=== PATIENT | male | born 1950 | race Caucasian/White ===

== ENCOUNTER 2019-10-16 18:20 | Inpatient (IN) ==
[2019-10-16] MEDS ORDERED: Ipratropium/Albuterol Neb 3 ML IH ONE (18:33)
[2019-10-16] MEDS ORDERED: cefTRIAXone 1,000 MG in Water for inj. (sterile) 10 ML IVP ONE (18:34)
[2019-10-16] MEDS ORDERED: Azithromycin 500 MG in 0.9 % Sodium Chloride 250 ML IVPB ONE (18:35)
[2019-10-16 19:15] LABS: Basophils % 0.5 %; Eosinophils % 0.5 %; Hemoglobin 13.2 g/dL (12.9-16.9)
[2019-10-16 19:17] LABS: Hematocrit 37.7 % (37.5-50.1); Immature Granulocytes % 0.5 % (0-4); Lymphocytes # 0.3 K/mcL (0.6-4.6); Lymphocytes % 12.7 %; Mean Corpuscular Hemoglobin 30.6 pg (28.0-33.3); Mean Corpuscular Volume 87.3 fL (83.0-100.0); Monocytes # 0.1 K/mcL (0.0-1.3); Monocytes % 4.4 %; Red Blood Count 4.32 M/mcL (4.19-5.50); Red Cell Distribution Width 13.3 % (11.5-14.5); Segmented Neutrophils % 81.4 %
[2019-10-16 19:35] LABS: BUN/Creatinine Ratio 24 (6-26); Blood Urea Nitrogen 18 mg/dL (8-23); Calcium 8.4 mg/dL (8.6-10.3); Carbon Dioxide 28 mEq/L (23-29); Chloride 94 mEq/L (98-107); Glucose 309 mg/dL (70-105); Osmolality,Calculated 290 (280-300); Potassium 3.3 mEq/L (3.5-5.1); Sodium 133 mEq/L (136-145); Troponin I < 0.03 ng/mL (< 0.04); eGFR For African Americans > 60 (> 60); eGFR For Non-African Americans > 60 (> 60)
[2019-10-16 19:39] LABS: Neutrophils # 1.6 K/mcL (1.6-8.9)
[2019-10-16 21:16] LABS: VBG HCO3 30 mEq/L (21-27); VBG PCO2 53 mmHg (41-51); VBG PH 7.36 pH Units (7.32-7.42); VBG PO2 45 mmHg (25-50)
[2019-10-16] MEDS ORDERED: Naloxone 0.4 MG/ML INJ IVP PRN (23:33)
[2019-10-16] MEDS ORDERED: D5% in Water 1,000 ML IVC PRN (23:38)
[2019-10-16] MEDS ORDERED: Dextrose Gel 15 GM/37.5 ML TUBE PO PRN ×2 (23:38)
[2019-10-16] MEDS ORDERED: *HR* Dextrose 50 % in Water (Syg) 50 ML SYRINGE IVP PRN (23:38)
[2019-10-17] MEDS: 0.9 % Sodium Chloride 1,000 ML IVC SCH ×2 (01:22→08:53)
[2019-10-17] MEDS: Ipratropium/Albuterol Neb 3 ML IH SCH ×4 (04:00→22:06)
[2019-10-17 04:48] LABS: Hemoglobin 12.6 g/dL (12.9-16.9); Mean Corpuscular Volume 91.1 fL (83.0-100.0); Red Cell Distribution Width 13.6 % (11.5-14.5)
[2019-10-17 04:49] LABS: Mean Corpuscular HGB Conc 33.2 g/dL (31.6-35.5); Mean Corpuscular Hemoglobin 30.2 pg (28.0-33.3); Mean Platelet Volume 11.5 fL (9.4-12.4); Platelet Count 122 K/mcL (140-400); Red Blood Count 4.17 M/mcL (4.19-5.50); White Blood Count 2.1 K/mcL (4.3-11.1)
[2019-10-17 04:50] LABS: VBG HCO3 30 mEq/L (21-27); VBG PCO2 52 mmHg (41-51); VBG PH 7.38 pH Units (7.32-7.42); VBG PO2 68 mmHg (25-50)
[2019-10-17 05:11] LABS: BUN/Creatinine Ratio 25 (6-26); Blood Urea Nitrogen 16 mg/dL (8-23); Calcium 8.5 mg/dL (8.6-10.3); Carbon Dioxide 30 mEq/L (23-29); Chloride 97 mEq/L (98-107); Glucose 221 mg/dL (70-105); Magnesium 1.9 mg/dL (1.6-2.6); Osmolality,Calculated 290 (280-300); Phosphorous 2.6 mg/dL (2.7-4.5); Potassium 3.9 mEq/L (3.5-5.1); Sodium 136 mEq/L (136-145); eGFR For African Americans > 60 (> 60); eGFR For Non-African Americans > 60 (> 60)
[2019-10-17] MEDS: *HR* Heparin 5,000 UNIT/ML VIAL SQ SCH ×2 (05:53→18:32)
[2019-10-17] MEDS ORDERED: Albuterol 2.5 MG/3 ML NEBULIZER IH PRN (08:30)
[2019-10-17] MEDS ORDERED: Losartan/HCTZ 50-12.5 TABLET PO SCH (09:00)
[2019-10-17] MEDS ORDERED: cefTRIAXone 2,000 MG in 0.9 % Sodium Chloride Mini Bag 100 ML IVPB SCH (09:00)
[2019-10-17] MEDS ORDERED: Azithromycin 500 MG in 0.9 % Sodium Chloride 250 ML IVPB SCH ×2 (09:00→17:00)
[2019-10-17] MEDS ORDERED: MethylPREDNISolone 40 MG/ML VIAL IVP SCH (09:00)
[2019-10-17] MEDS: Clotrimazole 1% CRM 15 GM TUBE TP SCH ×2 (09:06→20:41)
[2019-10-17] MEDS: Insulin LISPRO 300 UNITS/3 ML VIAL SQ SCH ×3 (09:12→18:26)
[2019-10-17] MEDS ORDERED: Isovue-370 500 ML BOTTLE IVP ONE (10:39)
[2019-10-17] MEDS: Budesonide/Formoterol 80/4.5 1 PUFF INH IH SCH ×2 (11:08→22:06)
[2019-10-17 11:46] LABS: Adenovirus Not Detected (Not Detect); Bordetella Pertussis Not Detected (Not Detect); Chlamydophila pneumoniae Not Detected (Not Detect); Coronavirus 229E Not Detected (Not Detect); Coronavirus HKU1 Not Detected (Not Detect); Coronavirus NL63 Not Detected (Not Detect); Coronavirus OC43 Not Detected (Not Detect); Human Metapneumovirus Not Detected (Not Detect); Human Rhinovirus/Enterovirus Not Detected (Not Detect); Influenza A Subtype 2009 H1 Not Detected (Not Detect); Influenza B Not Detected (Not Detect); Mycoplasma pneumoniae Not Detected (Not Detect); Parainfluenza Virus 1 Not Detected (Not Detect); Parainfluenza Virus 2 Not Detected (Not Detect); Parainfluenza Virus 3 Not Detected (Not Detect); Parainfluenza Virus 4 Not Detected (Not Detect); Respiratory Syncytial Virus Not Detected (Not Detect)
[2019-10-17] MEDS: Piperacillin/Tazobactam 3.375 GM in 0.9 % Sodium Chloride Mini Bag 100 ML IVPB SCH ×2 (16:07→23:46)
[2019-10-17] MEDS: MethylPREDNISolone 40 MG/ML VIAL IVP SCH ×2 (16:08→23:46)
[2019-10-17] MEDS: Acetaminophen 325 MG TABLET PO PRN (16:10)
[2019-10-17] MEDS ORDERED: Doxycycline 200 MG in 0.9 % Sodium Chloride 250 ML IVPB SCH (18:00)
[2019-10-17] MEDS ORDERED: Perflutren Lipid Microsphere 1.3 ML in 0.9 % Sodium Chloride 8.7 ML IVP ONE (18:19)
[2019-10-17] MEDS: Doxycycline 100 MG in 0.9 % Sodium Chloride Mini Bag 100 ML IVPB SCH ×2 (18:31→19:55)
[2019-10-17] MEDS ORDERED: Insulin LISPRO 300 UNITS/3 ML VIAL SQ SCH (21:00)
[2019-10-17] MEDS ORDERED: Insulin DETEMIR 100 UNIT/ML X5UNITS SQ SCH (21:00)
[2019-10-17] MEDS ORDERED: rOPINIRole 0.25 MG TABLET PO ONE (23:30)
[2019-10-18 02:14] LABS: Hematocrit 34.8 % (37.5-50.1); Hemoglobin 11.8 g/dL (12.9-16.9); Immature Granulocytes % 1.9 % (0-4); Lymphocytes # 0.2 K/mcL (0.6-4.6); Lymphocytes % 10.3 %; Mean Corpuscular HGB Conc 33.9 g/dL (31.6-35.5); Mean Corpuscular Hemoglobin 29.9 pg (28.0-33.3); Mean Corpuscular Volume 88.1 fL (83.0-100.0); Mean Platelet Volume 11.1 fL (9.4-12.4); Monocytes # 0.1 K/mcL (0.0-1.3); Monocytes % 5.6 %; Platelet Count 128 K/mcL (140-400); Red Blood Count 3.95 M/mcL (4.19-5.50); Red Cell Distribution Width 13.7 % (11.5-14.5); Segmented Neutrophils % 82.2 %; White Blood Count 2.1 K/mcL (4.3-11.1)
[2019-10-18 02:22] LABS: BUN/Creatinine Ratio 31 (6-26); Blood Urea Nitrogen 21 mg/dL (8-23); Calcium 8.4 mg/dL (8.6-10.3); Carbon Dioxide 27 mEq/L (23-29); Chloride 98 mEq/L (98-107); Glucose 320 mg/dL (70-105); Osmolality,Calculated 293 (280-300); Potassium 4.1 mEq/L (3.5-5.1); Sodium 134 mEq/L (136-145); eGFR For African Americans > 60 (> 60); eGFR For Non-African Americans > 60 (> 60)
[2019-10-18 02:30] LABS: Neutrophils # 1.7 K/mcL (1.6-8.9)
[2019-10-18 03:39] LABS: Platelet Estimate Normal (Normal)
[2019-10-18] MEDS: Ipratropium/Albuterol Neb 3 ML IH SCH ×4 (03:42→21:52)
[2019-10-18] MEDS: Doxycycline 100 MG in 0.9 % Sodium Chloride Mini Bag 100 ML IVPB SCH ×2 (06:40→17:48)
[2019-10-18] MEDS: *HR* Heparin 5,000 UNIT/ML VIAL SQ SCH ×2 (06:41→17:48)
[2019-10-18] MEDS: Piperacillin/Tazobactam 3.375 GM in 0.9 % Sodium Chloride Mini Bag 100 ML IVPB SCH ×2 (08:31→15:45)
[2019-10-18] MEDS: MethylPREDNISolone 40 MG/ML VIAL IVP SCH ×2 (08:31→15:45)
[2019-10-18] MEDS: Insulin LISPRO 300 UNITS/3 ML VIAL SQ SCH ×4 (08:32→22:15)
[2019-10-18] MEDS: Budesonide/Formoterol 80/4.5 1 PUFF INH IH SCH ×2 (09:50→21:53)
[2019-10-18] MEDS: Acetaminophen 325 MG TABLET PO PRN ×2 (11:45→19:51)
[2019-10-18] MEDS: Clotrimazole 1% CRM 15 GM TUBE TP SCH ×2 (11:46→22:24)
[2019-10-18] MEDS ORDERED: Insulin DETEMIR 100 UNIT/ML X5UNITS SQ ONE (12:08)
[2019-10-18] MEDS ORDERED: Furosemide 20 MG/2 ML VIAL IVP ONE (12:30)
[2019-10-18] MEDS: Celecoxib 200 MG CAPSULE PO SCH (12:51)
[2019-10-18] MEDS ORDERED: Insulin DETEMIR 100 UNIT/ML X5UNITS SQ SCH (21:00)
[2019-10-18] MEDS: *HR* OxyCODONE Immed Rel 5 MG TABLET PO PRN (22:54)
[2019-10-19] MEDS: MethylPREDNISolone 40 MG/ML VIAL IVP SCH ×2 (00:53→08:03)
[2019-10-19] MEDS: Piperacillin/Tazobactam 3.375 GM in 0.9 % Sodium Chloride Mini Bag 100 ML IVPB SCH ×4 (00:53→22:28)
[2019-10-19 02:03] LABS: Hematocrit 34.8 % (37.5-50.1); Immature Granulocytes % 0.7 % (0-4); Lymphocytes # 0.2 K/mcL (0.6-4.6); Lymphocytes % 5.1 %; Mean Corpuscular HGB Conc 34.5 g/dL (31.6-35.5); Mean Corpuscular Hemoglobin 30.2 pg (28.0-33.3); Mean Corpuscular Volume 87.4 fL (83.0-100.0); Mean Platelet Volume 10.6 fL (9.4-12.4); Monocytes # 0.3 K/mcL (0.0-1.3); Monocytes % 6.5 %; Platelet Count 184 K/mcL (140-400); Red Blood Count 3.98 M/mcL (4.19-5.50); Red Cell Distribution Width 13.7 % (11.5-14.5); Segmented Neutrophils % 87.7 %
[2019-10-19 02:04] LABS: White Blood Count 4.5 K/mcL (4.3-11.1)
[2019-10-19 02:23] LABS: BUN/Creatinine Ratio 40 (6-26); Blood Urea Nitrogen 26 mg/dL (8-23); Calcium 8.7 mg/dL (8.6-10.3); Carbon Dioxide 27 mEq/L (23-29); Chloride 99 mEq/L (98-107); Glucose 287 mg/dL (70-105); Osmolality,Calculated 299 (280-300); Phosphorous 2.8 mg/dL (2.7-4.5); Potassium 3.9 mEq/L (3.5-5.1); Sodium 137 mEq/L (136-145); eGFR For African Americans > 60 (> 60); eGFR For Non-African Americans > 60 (> 60)
[2019-10-19] MEDS: Ipratropium/Albuterol Neb 3 ML IH SCH ×4 (03:42→22:50)
[2019-10-19] MEDS: Doxycycline 100 MG in 0.9 % Sodium Chloride Mini Bag 100 ML IVPB SCH (06:22)
[2019-10-19] MEDS: *HR* Heparin 5,000 UNIT/ML VIAL SQ SCH ×2 (06:24→17:08)
[2019-10-19] MEDS: *HR* OxyCODONE Immed Rel 5 MG TABLET PO PRN ×3 (06:26→22:29)
[2019-10-19] MEDS: Celecoxib 200 MG CAPSULE PO SCH (08:02)
[2019-10-19] MEDS: Insulin LISPRO 300 UNITS/3 ML VIAL SQ SCH ×4 (08:03→22:30)
[2019-10-19] MEDS: Clotrimazole 1% CRM 15 GM TUBE TP SCH ×2 (08:04→21:40)
[2019-10-19] MEDS: Insulin DETEMIR 100 UNIT/ML X5UNITS SQ SCH ×2 (09:35→22:30)
[2019-10-19] MEDS: Budesonide/Formoterol 80/4.5 1 PUFF INH IH SCH ×2 (10:45→22:50)
[2019-10-19] MEDS ORDERED: Furosemide 20 MG/2 ML VIAL IVP ONE (11:04)
[2019-10-19] MEDS ORDERED: rOPINIRole 0.25 MG TABLET PO ONE (16:24)
[2019-10-19] MEDS: Doxycycline 100 MG CAPSULE PO SCH (22:29)
[2019-10-20] MEDS: Ipratropium/Albuterol Neb 3 ML IH SCH ×4 (03:26→21:51)
[2019-10-20 04:59] LABS: Basophils % 0.3 %; Hematocrit 36.1 % (37.5-50.1); Immature Granulocytes % 3.6 % (0-4); Lymphocytes % 11.7 %; Mean Corpuscular HGB Conc 33.2 g/dL (31.6-35.5); Mean Corpuscular Hemoglobin 29.4 pg (28.0-33.3); Mean Corpuscular Volume 88.5 fL (83.0-100.0); Mean Platelet Volume 10.9 fL (9.4-12.4); Monocytes # 0.4 K/mcL (0.0-1.3); Monocytes % 9.9 %; Platelet Count 169 K/mcL (140-400); Red Blood Count 4.08 M/mcL (4.19-5.50); Red Cell Distribution Width 13.7 % (11.5-14.5); Segmented Neutrophils % 74.5 %; White Blood Count 3.8 K/mcL (4.3-11.1)
[2019-10-20 05:03] LABS: Lymphocytes # 0.4 K/mcL (0.6-4.6); Neutrophils # 2.8 K/mcL (1.6-8.9)
[2019-10-20 05:16] LABS: BUN/Creatinine Ratio 40 (6-26); Blood Urea Nitrogen 27 mg/dL (8-23); Calcium 8.6 mg/dL (8.6-10.3); Carbon Dioxide 29 mEq/L (23-29); Chloride 100 mEq/L (98-107); Glucose 181 mg/dL (70-105); Osmolality,Calculated 298 (280-300); Phosphorous 3.9 mg/dL (2.7-4.5); Potassium 3.8 mEq/L (3.5-5.1); Sodium 139 mEq/L (136-145); eGFR For African Americans > 60 (> 60); eGFR For Non-African Americans > 60 (> 60)
[2019-10-20 06:11] LABS: Platelet Estimate Normal (Normal)
[2019-10-20] MEDS: *HR* Heparin 5,000 UNIT/ML VIAL SQ SCH ×2 (06:39→17:02)
[2019-10-20] MEDS: predniSONE 20 MG TABLET PO SCH (07:46)
[2019-10-20] MEDS: Doxycycline 100 MG CAPSULE PO SCH ×2 (07:46→20:06)
[2019-10-20] MEDS: Celecoxib 200 MG CAPSULE PO SCH (07:46)
[2019-10-20] MEDS: Piperacillin/Tazobactam 3.375 GM in 0.9 % Sodium Chloride Mini Bag 100 ML IVPB SCH ×2 (07:47→14:59)
[2019-10-20] MEDS: Clotrimazole 1% CRM 15 GM TUBE TP SCH ×2 (07:48→20:10)
[2019-10-20] MEDS: Insulin DETEMIR 100 UNIT/ML X5UNITS SQ SCH ×2 (07:49→20:08)
[2019-10-20] MEDS: Insulin LISPRO 300 UNITS/3 ML VIAL SQ SCH ×4 (07:54→20:08)
[2019-10-20] MEDS: Budesonide/Formoterol 80/4.5 1 PUFF INH IH SCH ×2 (10:39→21:51)
[2019-10-20] MEDS: *HR* OxyCODONE Immed Rel 5 MG TABLET PO PRN ×2 (11:52→20:05)
[2019-10-21] MEDS: Piperacillin/Tazobactam 3.375 GM in 0.9 % Sodium Chloride Mini Bag 100 ML IVPB SCH ×2 (00:39→07:48)
[2019-10-21 01:22] LABS: Hematocrit 37.4 % (37.5-50.1); Hemoglobin 12.2 g/dL (12.9-16.9); Mean Corpuscular HGB Conc 32.6 g/dL (31.6-35.5); Mean Corpuscular Hemoglobin 30.2 pg (28.0-33.3); Mean Corpuscular Volume 92.6 fL (83.0-100.0); Mean Platelet Volume 10.5 fL (9.4-12.4); Nucleated Red Blood Cells 0.4 /100 WBC (0); Platelet Count 194 K/mcL (140-400); Red Blood Count 4.04 M/mcL (4.19-5.50); Red Cell Distribution Width 13.5 % (11.5-14.5); White Blood Count 4.6 K/mcL (4.3-11.1)
[2019-10-21 01:36] LABS: BUN/Creatinine Ratio 41 (6-26); Blood Urea Nitrogen 25 mg/dL (8-23); Calcium 8.7 mg/dL (8.6-10.3); Carbon Dioxide 27 mEq/L (23-29); Chloride 102 mEq/L (98-107); Glucose 148 mg/dL (70-105); Osmolality,Calculated 293 (280-300); Phosphorous 4.3 mg/dL (2.7-4.5); Potassium 3.8 mEq/L (3.5-5.1); Sodium 138 mEq/L (136-145); eGFR For African Americans > 60 (> 60); eGFR For Non-African Americans > 60 (> 60)
[2019-10-21 02:18] LABS: Lymphocytes # 0.8 K/mcL (0.6-4.6); Monocytes # 0.6 K/mcL (0.0-1.3); Neutrophils # 3.2 K/mcL (1.6-8.9)
[2019-10-21 02:19] LABS: Platelet Estimate Normal (Normal); Reactive Lymphocytes Present (Not Present)
[2019-10-21] MEDS: *HR* OxyCODONE Immed Rel 5 MG TABLET PO PRN ×4 (03:24→23:33)
[2019-10-21] MEDS: Ipratropium/Albuterol Neb 3 ML IH SCH ×4 (03:52→22:05)
[2019-10-21] MEDS: *HR* Heparin 5,000 UNIT/ML VIAL SQ SCH ×2 (06:35→16:56)
[2019-10-21] MEDS: Insulin LISPRO 300 UNITS/3 ML VIAL SQ SCH ×5 (07:45→20:48)
[2019-10-21] MEDS: Doxycycline 100 MG CAPSULE PO SCH ×2 (07:48→20:48)
[2019-10-21] MEDS: Clotrimazole 1% CRM 15 GM TUBE TP SCH ×2 (07:49→20:52)
[2019-10-21] MEDS: Celecoxib 200 MG CAPSULE PO SCH (07:49)
[2019-10-21] MEDS: predniSONE 20 MG TABLET PO SCH (07:49)
[2019-10-21] MEDS: Insulin DETEMIR 100 UNIT/ML X5UNITS SQ SCH ×2 (07:58→20:48)
[2019-10-21] MEDS: Acetaminophen 325 MG TABLET PO PRN (07:58)
[2019-10-21] MEDS: Lactobacillus 1 EACH CAP.SPRINK PO SCH ×2 (10:02→20:48)
[2019-10-21] MEDS: Budesonide/Formoterol 80/4.5 1 PUFF INH IH SCH ×2 (10:31→22:05)
[2019-10-22] MEDS: Ipratropium/Albuterol Neb 3 ML IH SCH ×4 (03:51→22:05)
[2019-10-22] MEDS: Acetaminophen 325 MG TABLET PO PRN (04:07)
[2019-10-22] MEDS: *HR* OxyCODONE Immed Rel 5 MG TABLET PO PRN ×2 (05:09→20:17)
[2019-10-22] MEDS: *HR* Heparin 5,000 UNIT/ML VIAL SQ SCH ×2 (05:11→17:17)
[2019-10-22 07:48] LABS: BUN/Creatinine Ratio 40 (6-26); Blood Urea Nitrogen 25 mg/dL (8-23); Carbon Dioxide 28 mEq/L (23-29); Chloride 97 mEq/L (98-107); Glucose 167 mg/dL (70-105); Osmolality,Calculated 286 (280-300); Sodium 134 mEq/L (136-145); eGFR For African Americans > 60 (> 60); eGFR For Non-African Americans > 60 (> 60)
[2019-10-22] MEDS: Doxycycline 100 MG CAPSULE PO SCH ×2 (08:52→21:31)
[2019-10-22] MEDS: Celecoxib 200 MG CAPSULE PO SCH (08:53)
[2019-10-22] MEDS: predniSONE 20 MG TABLET PO SCH (08:53)
[2019-10-22] MEDS: Lactobacillus 1 EACH CAP.SPRINK PO SCH ×2 (08:53→21:31)
[2019-10-22] MEDS: Insulin LISPRO 300 UNITS/3 ML VIAL SQ SCH ×7 (08:54→21:32)
[2019-10-22] MEDS: Insulin DETEMIR 100 UNIT/ML X5UNITS SQ SCH ×2 (09:49→21:32)
[2019-10-22] MEDS: Clotrimazole 1% CRM 15 GM TUBE TP SCH ×2 (09:50→21:32)
[2019-10-22] MEDS: Budesonide/Formoterol 80/4.5 1 PUFF INH IH SCH ×2 (10:41→22:05)
[2019-10-22 10:50] LABS: Basophils % 0.2 %; Eosinophils # 0.1 K/mcL (0.0-0.6); Eosinophils % 0.6 %; Hematocrit 41.3 % (37.5-50.1); Hemoglobin 13.6 g/dL (12.9-16.9); Immature Granulocytes % 5.6 % (0-4); Lymphocytes # 1.1 K/mcL (0.6-4.6); Lymphocytes % 11.7 %; Mean Corpuscular HGB Conc 32.9 g/dL (31.6-35.5); Mean Corpuscular Hemoglobin 29.8 pg (28.0-33.3); Mean Corpuscular Volume 90.6 fL (83.0-100.0); Mean Platelet Volume 10.1 fL (9.4-12.4); Monocytes # 0.7 K/mcL (0.0-1.3); Monocytes % 6.9 %; Neutrophils # 7.3 K/mcL (1.6-8.9); Nucleated Red Blood Cells 0.3 /100 WBC (0); Platelet Count 291 K/mcL (140-400); Red Blood Count 4.56 M/mcL (4.19-5.50); Red Cell Distribution Width 13.5 % (11.5-14.5); White Blood Count 9.7 K/mcL (4.3-11.1)
[2019-10-23 01:43] LABS: Basophils # 0.1 K/mcL (0.0-0.2); Basophils % 0.7 %; Eosinophils % 0.4 %; Hematocrit 39.1 % (37.5-50.1); Hemoglobin 13.1 g/dL (12.9-16.9); Immature Granulocytes % 5.9 % (0-4); Lymphocytes % 15.7 %; Mean Corpuscular HGB Conc 33.5 g/dL (31.6-35.5); Mean Corpuscular Hemoglobin 29.9 pg (28.0-33.3); Mean Corpuscular Volume 89.3 fL (83.0-100.0); Mean Platelet Volume 9.8 fL (9.4-12.4); Monocytes # 0.7 K/mcL (0.0-1.3); Monocytes % 9.1 %; Platelet Count 264 K/mcL (140-400); Red Blood Count 4.38 M/mcL (4.19-5.50); Red Cell Distribution Width 13.5 % (11.5-14.5); Segmented Neutrophils % 68.2 %; White Blood Count 7.3 K/mcL (4.3-11.1)
[2019-10-23 01:50] LABS: Lymphocytes # 1.2 K/mcL (0.6-4.6)
[2019-10-23 01:59] LABS: BUN/Creatinine Ratio 37 (6-26); Blood Urea Nitrogen 20 mg/dL (8-23); Calcium 8.9 mg/dL (8.6-10.3); Carbon Dioxide 26 mEq/L (23-29); Chloride 100 mEq/L (98-107); Glucose 164 mg/dL (70-105); Osmolality,Calculated 284 (280-300); Sodium 134 mEq/L (136-145); eGFR For African Americans > 60 (> 60); eGFR For Non-African Americans > 60 (> 60)
[2019-10-23 02:39] LABS: Platelet Estimate Normal (Normal)
[2019-10-23 02:40] LABS: Polychromasia 1+ (Not Present); Reactive Lymphocytes Present (Not Present)
[2019-10-23] MEDS: Ipratropium/Albuterol Neb 3 ML IH SCH ×4 (03:58→21:13)
[2019-10-23] MEDS: Acetaminophen 325 MG TABLET PO PRN (04:10)
[2019-10-23] MEDS: *HR* Heparin 5,000 UNIT/ML VIAL SQ SCH ×2 (04:10→17:38)
[2019-10-23] MEDS: Celecoxib 200 MG CAPSULE PO SCH (08:06)
[2019-10-23] MEDS: predniSONE 20 MG TABLET PO SCH (08:06)
[2019-10-23] MEDS: Doxycycline 100 MG CAPSULE PO SCH ×2 (08:07→20:26)
[2019-10-23] MEDS: Lactobacillus 1 EACH CAP.SPRINK PO SCH ×2 (08:07→20:26)
[2019-10-23] MEDS: Insulin DETEMIR 100 UNIT/ML X5UNITS SQ SCH ×2 (08:07→20:26)
[2019-10-23] MEDS: Clotrimazole 1% CRM 15 GM TUBE TP SCH ×3 (08:08→21:26)
[2019-10-23] MEDS: Insulin LISPRO 300 UNITS/3 ML VIAL SQ SCH ×7 (08:08→20:27)
[2019-10-23] MEDS: Budesonide/Formoterol 80/4.5 1 PUFF INH IH SCH ×2 (10:43→21:13)
[2019-10-23] MEDS: *HR* OxyCODONE Immed Rel 5 MG TABLET PO PRN (16:56)
[2019-10-24] MEDS: Ipratropium/Albuterol Neb 3 ML IH SCH ×2 (03:21→10:57)
[2019-10-24] MEDS: *HR* Heparin 5,000 UNIT/ML VIAL SQ SCH (06:30)
[2019-10-24] MEDS: Clotrimazole 1% CRM 15 GM TUBE TP SCH (07:47)
[2019-10-24] MEDS: Insulin LISPRO 300 UNITS/3 ML VIAL SQ SCH ×4 (07:48→11:39)
[2019-10-24] MEDS: Insulin DETEMIR 100 UNIT/ML X5UNITS SQ SCH (07:48)
[2019-10-24] MEDS: Celecoxib 200 MG CAPSULE PO SCH (07:51)
[2019-10-24] MEDS: Lactobacillus 1 EACH CAP.SPRINK PO SCH (07:52)
[2019-10-24] MEDS: Doxycycline 100 MG CAPSULE PO SCH (07:52)
[2019-10-24] MEDS: predniSONE 20 MG TABLET PO SCH (07:53)
[2019-10-24 10:12] VITALS: BP 118/70
[2019-10-24] MEDS: Budesonide/Formoterol 80/4.5 1 PUFF INH IH SCH (10:57)
== END 2019-10-24 13:42 | disposition home or self-care (01) | DRG 871 ==
LOC: 3ANU 18:20 → EMEROOARM 18:20 → 3ANU 21:22 → SUATTDRO 10-17 03:30 → 2NNU 10-17 13:23 → 3ANU 10-23 14:19
PROVIDERS: ADMIT Internal Medicine; ATTEND Student in an Organized Health Care Education/Training Program

== ENCOUNTER 2020-07-25 09:55 | Inpatient (IN) ==
[2020-07-25] MEDS ORDERED: Nitroglycerin 0.4 MG TAB.SUBL SL PRN (10:15)
[2020-07-25 10:30] LABS: Basophils % 0.7 %; Eosinophils # 0.2 K/mcL (0.0-0.6); Eosinophils % 3.2 %; Hematocrit 35.7 % (37.5-50.1); Hemoglobin 11.9 g/dL (12.9-16.9); Immature Granulocytes % 0.4 % (0-4); Lymphocytes # 1.4 K/mcL (0.6-4.6); Lymphocytes % 24.6 %; Mean Corpuscular HGB Conc 33.3 g/dL (31.6-35.5); Mean Corpuscular Hemoglobin 29.3 pg (28.0-33.3); Mean Corpuscular Volume 87.9 fL (83.0-100.0); Mean Platelet Volume 10.2 fL (9.4-12.4); Monocytes # 0.4 K/mcL (0.0-1.3); Monocytes % 6.4 %; Neutrophils # 3.6 K/mcL (1.6-8.9); Platelet Count 217 K/mcL (140-400); Red Blood Count 4.06 M/mcL (4.19-5.50); Red Cell Distribution Width 13.5 % (11.5-14.5); Segmented Neutrophils % 64.7 %; White Blood Count 5.6 K/mcL (4.3-11.1)
[2020-07-25] MEDS ORDERED: Aspirin 81 MG TAB.CHEW ONE (10:36)
[2020-07-25 10:37] LABS: INR 1.3; Prothrombin Time 14.4 Seconds (9.4-12.1)
[2020-07-25] MEDS: Aspirin 81 MG TAB.CHEW PO ONE ×2 (10:37→12:05)
[2020-07-25 10:54] LABS: Bilirubin,Urine Negative (Negative); Blood,Urine Trace (Negative); Clarity,Urine Clear (Clear); Color,Urine Light-Yellow (Yellow); Glucose,Urine (UA) >=1000 mg/dL (Normal); Ketones,Urine Trace mg/dL (Negative); Leukocyte Esterase,Urine Negative (Negative); Mucus,Urine Few per lpf (None-Few); Nitrite,Urine Negative (Negative); PH,Urine 6.5 pH Units (5.0-8.0); Protein,Urine 70 mg/dL (Neg-Trace); Specific Gravity,Urine 1.024 (1.010-1.025); Squamous Epithelial Cell,Urine Few per hpf (None-Few); Urobilinogen,Urine Normal (Normal); WBC,Urine 0-3 per hpf (0-3)
[2020-07-25 11:10] LABS: BUN/Creatinine Ratio 16 (6-26); Blood Urea Nitrogen 15 mg/dL (8-23); Carbon Dioxide 24 mEq/L (23-29); Chloride 105 mEq/L (98-107); Glucose 249 mg/dL (70-105); Osmolality,Calculated 299 (280-300); Potassium 3.8 mEq/L (3.5-5.1); Sodium 140 mEq/L (136-145); Troponin I 1.07 ng/mL (< 0.04); eGFR For African Americans > 60 (> 60); eGFR For Non-African Americans > 60 (> 60)
[2020-07-25] MEDS ORDERED: *HR* FentaNYL (PF) 100 MCG/2 ML VIAL IVP ONE (11:20)
[2020-07-25] MEDS ORDERED: *HR* Heparin 5,000 UNIT/ML VIAL ONE (11:39)
[2020-07-25 11:41] LABS: Adenovirus Not Detected (Not Detect); Bordetella Pertussis Not Detected (Not Detect); Chlamydophila pneumoniae Not Detected (Not Detect); Coronavirus 229E Not Detected (Not Detect); Coronavirus HKU1 Not Detected (Not Detect); Coronavirus NL63 Not Detected (Not Detect); Coronavirus OC43 Not Detected (Not Detect); Human Metapneumovirus Not Detected (Not Detect); Human Rhinovirus/Enterovirus Not Detected (Not Detect); Influenza A Subtype 2009 H1 Not Detected (Not Detect); Influenza B Not Detected (Not Detect); Mycoplasma pneumoniae Not Detected (Not Detect); Parainfluenza Virus 1 Not Detected (Not Detect); Parainfluenza Virus 2 Not Detected (Not Detect); Parainfluenza Virus 3 Not Detected (Not Detect); Parainfluenza Virus 4 Not Detected (Not Detect); Respiratory Syncytial Virus Not Detected (Not Detect); SARS-CoV-2 Not Detected (Not Detect)
[2020-07-25] MEDS ORDERED: Perflutren Lipid Microsphere 1.3 ML in 0.9 % Sodium Chloride 8.7 ML IVP PRN (11:49)
[2020-07-25] MEDS ORDERED: Ondansetron 4 MG/2 ML VIAL IVP PRN (11:49)
[2020-07-25] MEDS ORDERED: *HR* Dextrose 50 % in Water (Vial) 50 ML VIAL IVP PRN (11:49)
[2020-07-25] MEDS ORDERED: D5% in Water 1,000 ML IVC PRN (11:49)
[2020-07-25] MEDS ORDERED: Dextrose Gel 15 GM/37.5 ML TUBE PO PRN ×2 (11:49)
[2020-07-25] MEDS ORDERED: Naloxone 0.4 MG/ML INJ IVP PRN (11:49)
[2020-07-25] MEDS ORDERED: *HR* Heparin 5,000 UNIT/ML VIAL IVP ONE (11:51)
[2020-07-25] MEDS ORDERED: *HR* Heparin 5,000 UNIT/ML VIAL IVP PRN (11:51)
[2020-07-25] MEDS: Heparin 25,000UNIT/250ML 1/2NS 25,000 UNIT/250 ML IV.SOLN IVC SCH (12:04)
[2020-07-25 12:13] LABS: Hemoglobin 11.2 g/dL (12.9-16.9); Mean Corpuscular HGB Conc 32.9 g/dL (31.6-35.5); Mean Corpuscular Hemoglobin 29.3 pg (28.0-33.3); Mean Platelet Volume 10.2 fL (9.4-12.4); Platelet Count 205 K/mcL (140-400); Red Blood Count 3.82 M/mcL (4.19-5.50); Red Cell Distribution Width 13.6 % (11.5-14.5)
[2020-07-25 12:18] LABS: Heparin anti-factor XA UFH < 0.04 IU/mL (0.30-0.70); INR 1.3; Prothrombin Time 14.4 Seconds (9.4-12.1)
[2020-07-25] MEDS: Nitroglycerin 0.4 MG PATCH.TD24 TD SCH (14:22)
[2020-07-25] MEDS: Insulin LISPRO 300 UNITS/3 ML VIAL SQ SCH (16:27)
[2020-07-26 00:41] LABS: Basophils % 0.3 %; Eosinophils # 0.2 K/mcL (0.0-0.6); Eosinophils % 2.1 %; Hematocrit 30.5 % (37.5-50.1); Hemoglobin 10.1 g/dL (12.9-16.9); Immature Granulocytes % 0.1 % (0-4); Lymphocytes # 1.8 K/mcL (0.6-4.6); Lymphocytes % 24.2 %; Mean Corpuscular HGB Conc 33.1 g/dL (31.6-35.5); Mean Corpuscular Hemoglobin 30.1 pg (28.0-33.3); Mean Corpuscular Volume 90.8 fL (83.0-100.0); Mean Platelet Volume 10.5 fL (9.4-12.4); Monocytes # 0.5 K/mcL (0.0-1.3); Monocytes % 7.5 %; Neutrophils # 4.8 K/mcL (1.6-8.9); Platelet Count 188 K/mcL (140-400); Red Blood Count 3.36 M/mcL (4.19-5.50); Red Cell Distribution Width 13.7 % (11.5-14.5); Segmented Neutrophils % 65.8 %; White Blood Count 7.2 K/mcL (4.3-11.1)
[2020-07-26 00:58] LABS: BUN/Creatinine Ratio 26 (6-26); Blood Urea Nitrogen 19 mg/dL (8-23); Carbon Dioxide 25 mEq/L (23-29); Chloride 106 mEq/L (98-107); Potassium 3.1 mEq/L (3.5-5.1); Sodium 140 mEq/L (136-145); eGFR For African Americans > 60 (> 60)
[2020-07-26 00:59] LABS: Calcium 8.7 mg/dL (8.6-10.3); Glucose 117 mg/dL (70-105); Osmolality,Calculated 293 (280-300); eGFR For Non-African Americans > 60 (> 60)
[2020-07-26] MEDS: Acetaminophen 325 MG TABLET PO PRN ×2 (03:58→11:58)
[2020-07-26] MEDS: Insulin LISPRO 300 UNITS/3 ML VIAL SQ SCH ×3 (07:41→16:35)
[2020-07-26] MEDS: *HR* Heparin 5,000 UNIT/ML VIAL IVP PRN (07:50)
[2020-07-26] MEDS: Nitroglycerin 0.4 MG PATCH.TD24 TD SCH (07:52)
[2020-07-26] MEDS: Aspirin 81 MG TAB.CHEW PO SCH (07:53)
[2020-07-26 08:08] LABS: Troponin I 2.86 ng/mL (< 0.04)
[2020-07-26] MEDS ORDERED: Potassium Chloride 20 MEQ, Lidocaine 1% 2 ML in 0.9 % Sodium Chloride 250 ML IVPB ONE (08:21)
[2020-07-26] MEDS ORDERED: Losartan/HCTZ 50-12.5 TABLET PO SCH (09:00)
[2020-07-26] MEDS: Heparin 25,000UNIT/250ML 1/2NS 25,000 UNIT/250 ML IV.SOLN IVC SCH ×2 (10:39→15:48)
[2020-07-26] MEDS ORDERED: ISOVUE-370 200 ML INFUS..BTL ONE (13:20)
[2020-07-26] MEDS ORDERED: Nitroglycerin 1,000 MCG/10 ML VIAL IV ONE (13:20)
[2020-07-26] MEDS ORDERED: *HR* Heparin 10,000 UNIT/10 ML VIAL ONE (13:20)
[2020-07-26] MEDS ORDERED: Heparin 1,000 UNITS/500 mL 500 ML ONE (13:20)
[2020-07-26] MEDS ORDERED: 0.9 % Sodium Chloride 2,000 ML ONE (13:20)
[2020-07-26] MEDS ORDERED: *HR* FentaNYL (PF) 100 MCG/2 ML VIAL ONE (13:43)
[2020-07-26] MEDS ORDERED: *HR* Midazolam HCl 2 MG/2 ML VIAL ONE (13:43)
[2020-07-26 15:42] LABS: Heparin anti-factor XA UFH < 0.04 IU/mL (0.30-0.70)
[2020-07-26 16:10] LABS: Chol/HDL Ratio 4.3 (0-4.9)
[2020-07-26 16:19] LABS: INR 1.2; Prothrombin Time 14.2 Seconds (9.4-12.1)
[2020-07-26 17:20] LABS: Estimated Average Glucose 148 mg/dl
[2020-07-26] MEDS: Chlorhexidine Rinse 15 ML MOUTHWASH MM SCH (19:51)
[2020-07-27] MEDS: *HR* Heparin 5,000 UNIT/ML VIAL IVP PRN (00:05)
[2020-07-27] MEDS: *HR* OxyCODONE/APAP 7.5/325 TABLET PO PRN ×2 (04:11→21:09)
[2020-07-27 06:21] LABS: Hematocrit 35.8 % (37.5-50.1); Mean Corpuscular HGB Conc 32.7 g/dL (31.6-35.5); Mean Corpuscular Hemoglobin 29.6 pg (28.0-33.3); Mean Corpuscular Volume 90.6 fL (83.0-100.0); Mean Platelet Volume 10.3 fL (9.4-12.4); Platelet Count 208 K/mcL (140-400); Red Blood Count 3.95 M/mcL (4.19-5.50); Red Cell Distribution Width 13.7 % (11.5-14.5); White Blood Count 7.8 K/mcL (4.3-11.1)
[2020-07-27 06:23] LABS: Hemoglobin 11.7 g/dL (12.9-16.9)
[2020-07-27 06:33] LABS: BUN/Creatinine Ratio 20 (6-26); Blood Urea Nitrogen 12 mg/dL (8-23); Calcium 9.2 mg/dL (8.6-10.3); Carbon Dioxide 25 mEq/L (23-29); Chloride 105 mEq/L (98-107); Glucose 145 mg/dL (70-105); Osmolality,Calculated 288 (280-300); Potassium 3.7 mEq/L (3.5-5.1); Sodium 138 mEq/L (136-145); eGFR For African Americans > 60 (> 60); eGFR For Non-African Americans > 60 (> 60)
[2020-07-27 06:34] LABS: Magnesium 1.7 mg/dL (1.6-2.6); Phosphorous 3.1 mg/dL (2.7-4.5)
[2020-07-27] MEDS: Aspirin 81 MG TAB.CHEW PO SCH (07:37)
[2020-07-27] MEDS: Nitroglycerin 0.4 MG PATCH.TD24 TD SCH (07:37)
[2020-07-27] MEDS: Chlorhexidine Rinse 15 ML MOUTHWASH MM SCH ×2 (07:39→20:08)
[2020-07-27] MEDS: Insulin LISPRO 300 UNITS/3 ML VIAL SQ SCH ×3 (07:48→19:36)
[2020-07-27] MEDS: Heparin 25,000UNIT/250ML 1/2NS 25,000 UNIT/250 ML IV.SOLN IVC SCH (08:49)
[2020-07-27] MEDS ORDERED: *HR* Magnesium Sulfate 2 GM/50 ML PIGGYBACK IVPB ONE (10:39)
[2020-07-27] MEDS ORDERED: Mannitol 25% vial 12.5 GM/50 ML VIAL IVPB ONE (10:39)
[2020-07-27] MEDS ORDERED: Albumin Human 25% 25 GM/100 ML IV.SOLN IVPB ONE (10:39)
[2020-07-27] MEDS ORDERED: *HR* Heparin 10,000 UNIT/10 ML VIAL IR ONE (10:39)
[2020-07-27] MEDS ORDERED: Lidocaine 2% Syringe 100 MG/5 ML IVP ONE (10:39)
[2020-07-27] MEDS ORDERED: *HR* Phenylephrine 10 MG/ML VIAL IVC ONE (10:39)
[2020-07-27] MEDS ORDERED: Tranexamic Acid 1,000 MG/10 ML VIAL IR ONE (10:39)
[2020-07-27] MEDS ORDERED: Papaverine 60 MG/2 ML VIAL IVP ONE (12:12)
[2020-07-27] MEDS ORDERED: *HR* FentaNYL (PF) 1,000 MCG/20 ML VIAL ONE (12:41)
[2020-07-27] MEDS ORDERED: *HR* Midazolam HCl 5 MG/5 ML VIAL IVP ONE (12:41)
[2020-07-27] MEDS ORDERED: *HR* Rocuronium Bromide 50 MG/5 ML VIAL ONE ×2 (12:41→14:56)
[2020-07-27] MEDS ORDERED: *HR* Propofol 200 MG/20 ML VIAL IVP ONE (12:41)
[2020-07-27] MEDS ORDERED: Dexamethasone 4 MG/ML VIAL ONE (12:41)
[2020-07-27] MEDS ORDERED: *HR* Magnesium Sulfate 1 GM/2 ML VIAL ONE (12:42)
[2020-07-27] MEDS ORDERED: Lidocaine 2% Syringe 100 MG/5 ML ONE (12:42)
[2020-07-27] MEDS ORDERED: Famotidine 20 MG/2 ML VIAL ONE (12:42)
[2020-07-27] MEDS ORDERED: Tranexamic Acid 1,000 MG/10 ML VIAL ONE (12:43)
[2020-07-27] MEDS ORDERED: Dextrose 50 % in Water (Vial) 30 ML, Sodium Bicarbonate 20 MEQ, Potassium Chloride 15 M... TH ONE (13:00)
[2020-07-27] MEDS ORDERED: Heparin 15,000 UNIT in 0.9 % Sodium Chloride 500 ML IV ONE (13:00)
[2020-07-27] MEDS ORDERED: Dextrose 50 % in Water (Vial) 30 ML, Sodium Bicarbonate 20 MEQ, Lidocaine 1% 5 ML, Insu... TH ONE ×3 (13:00)
[2020-07-27] MEDS ORDERED: Insulin Human Regular 100 UNIT in 0.9 % Sodium Chloride 100 ML IV PRN (13:00)
[2020-07-27] MEDS ORDERED: CeFAZolin Syr 2,000MG/20 ML 2,000 MG/20 ML SYRINGE IVPB ONE (13:00)
[2020-07-27] MEDS ORDERED: Norepinephrine 4 MG in 0.9 % Sodium Chloride 250 ML IVC PRN (13:00)
[2020-07-27] MEDS ORDERED: *HR* PHENYLEPHRINE 1,000 MCG/10 ML SYRINGE IVP ONE (14:04)
[2020-07-27 14:23] LABS: ABG Base Excess -3 mEq/L (-2 to 3); ABG Chloride 107 mEq/L (98-107); ABG Glucose 118 mg/dL (60-95); ABG HCO3 22 mEq/L (21-27); ABG Ionized Calcium 1.02 mmol/L (1.15-1.35); ABG Oxygen Saturation 100 % (95-98); ABG PCO2 37 mmHg (35-45); ABG PH 7.38 pH Units (7.32-7.45); ABG PO2 319 mmHg (85-104); ABG TCO2 23 mEq/L (20-26)
[2020-07-27] MEDS ORDERED: Calcium Gluconate 1,000 MG/10 ML VIAL ONE (15:35)
[2020-07-27] MEDS ORDERED: Protamine Sulfate 250 MG/25 ML VIAL IVP ONE (15:35)
[2020-07-27 15:56] LABS: ABG Base Excess -1 mEq/L (-2 to 3); ABG Chloride 105 mEq/L (98-107); ABG Glucose 178 mg/dL (60-95); ABG HCO3 24 mEq/L (21-27); ABG Ionized Calcium 1.11 mmol/L (1.15-1.35); ABG Oxygen Saturation 99 % (95-98); ABG PCO2 37 mmHg (35-45); ABG PH 7.42 pH Units (7.32-7.45); ABG PO2 112 mmHg (85-104); ABG TCO2 25 mEq/L (20-26)
[2020-07-27 16:20] LABS: ABG Base Excess -1 mEq/L (-2 to 3); ABG Chloride 98 mEq/L (98-107); ABG Glucose 240 mg/dL (60-95); ABG HCO3 24 mEq/L (21-27); ABG Ionized Calcium 1.02 mmol/L (1.15-1.35); ABG Oxygen Saturation 100 % (95-98); ABG PCO2 38 mmHg (35-45); ABG PO2 482 mmHg (85-104); ABG TCO2 25 mEq/L (20-26)
[2020-07-27 16:32] LABS: ABG Base Excess 0 mEq/L (-2 to 3); ABG Chloride 98 mEq/L (98-107); ABG Glucose 260 mg/dL (60-95); ABG HCO3 25 mEq/L (21-27); ABG Ionized Calcium 1.03 mmol/L (1.15-1.35); ABG Oxygen Saturation 100 % (95-98); ABG PCO2 38 mmHg (35-45); ABG PH 7.42 pH Units (7.32-7.45); ABG PO2 424 mmHg (85-104); ABG TCO2 26 mEq/L (20-26)
[2020-07-27 17:00] LABS: ABG Base Excess -2 mEq/L (-2 to 3); ABG Chloride 101 mEq/L (98-107); ABG Glucose 217 mg/dL (60-95); ABG HCO3 23 mEq/L (21-27); ABG Ionized Calcium 1.15 mmol/L (1.15-1.35); ABG Oxygen Saturation 100 % (95-98); ABG PCO2 40 mmHg (35-45); ABG PH 7.37 pH Units (7.32-7.45); ABG PO2 204 mmHg (85-104); ABG TCO2 25 mEq/L (20-26)
[2020-07-27] MEDS ORDERED: *HR* Dextrose 50 % in Water (Vial) 50 ML VIAL IVP PRN (17:18)
[2020-07-27] MEDS ORDERED: Potassium Chloride 40 MEQ/200 ML BAG IVPB PRN (17:18)
[2020-07-27] MEDS ORDERED: *HR* Promethazine 25 MG/ML VIAL IM PRN (17:18)
[2020-07-27] MEDS ORDERED: Insulin Regular, Human 100 UNIT/ML IV PRN (17:18)
[2020-07-27] MEDS: Norepinephrine 4 MG/254 ML IV.SOLN IVC SCH ×2 (17:30→19:38)
[2020-07-27] MEDS: Albumin Human 5% 12.5 GM/250 ML IV.SOLN IVPB PRN ×2 (17:35→18:05)
[2020-07-27 18:09] LABS: Basophils % 0.2 %; Eosinophils # 0.1 K/mcL (0.0-0.6); Eosinophils % 0.4 %; Hematocrit 29.5 % (37.5-50.1); Immature Granulocytes % 2.7 % (0-4); Lymphocytes # 0.7 K/mcL (0.6-4.6); Lymphocytes % 4.1 %; Mean Corpuscular HGB Conc 33.2 g/dL (31.6-35.5); Mean Corpuscular Hemoglobin 29.6 pg (28.0-33.3); Mean Corpuscular Volume 89.1 fL (83.0-100.0); Monocytes # 1.1 K/mcL (0.0-1.3); Monocytes % 6.6 %; Neutrophils # 14.8 K/mcL (1.6-8.9); Platelet Count 183 K/mcL (140-400); Red Blood Count 3.31 M/mcL (4.19-5.50); Red Cell Distribution Width 13.5 % (11.5-14.5)
[2020-07-27 18:12] LABS: BUN/Creatinine Ratio 19 (6-26); Blood Urea Nitrogen 14 mg/dL (8-23); Calcium 8.5 mg/dL (8.6-10.3); Carbon Dioxide 26 mEq/L (23-29); Chloride 103 mEq/L (98-107); Glucose 176 mg/dL (70-105); Magnesium 2.8 mg/dL (1.6-2.6); Osmolality,Calculated 289 (280-300); Potassium 3.5 mEq/L (3.5-5.1); Sodium 137 mEq/L (136-145); eGFR For African Americans > 60 (> 60); eGFR For Non-African Americans > 60 (> 60)
[2020-07-27 18:13] LABS: INR 1.4; Prothrombin Time 16.3 Seconds (9.4-12.1)
[2020-07-27 18:14] LABS: Hemoglobin 9.8 g/dL (12.9-16.9); White Blood Count 17.2 K/mcL (4.3-11.1)
[2020-07-27 18:15] LABS: Activated Partial Thrombo Time 26.2 Seconds (26.0-36.0)
[2020-07-27] MEDS: *HR* OxyCODONE/APAP 5/325 TABLET PO PRN (18:16)
[2020-07-27] MEDS: *HR* FentaNYL (PF) 100 MCG/2 ML VIAL IVP PRN ×3 (18:17→22:27)
[2020-07-27] MEDS: 0.9 % Sodium Chloride 1,000 ML IVC SCH (18:43)
[2020-07-27 19:16] LABS: ABG Base Excess 0 mEq/L (-2 to 3); ABG HCO3 25 mEq/L (21-27); ABG Oxygen Saturation 95 % (95-98); ABG PCO2 41 mmHg (35-45); ABG PO2 76 mmHg (85-104); ABG TCO2 27 mEq/L (20-26); Blood Gas Modality ASSIST CONTROL; Blood Gas VT 550 cc
[2020-07-27] MEDS: niCARdipine 20 MG/200 ML MLS IVC SCH ×2 (19:22→21:07)
[2020-07-27] MEDS: Insulin Human Regular 100 UNIT in 0.9 % Sodium Chloride 100 ML IVC SCH (19:36)
[2020-07-27 21:25] LABS: ABG Base Excess 2 mEq/L (-2 to 3); ABG HCO3 27 mEq/L (21-27); ABG Oxygen Saturation 98 % (95-98); ABG PCO2 44 mmHg (35-45); ABG PO2 106 mmHg (85-104); ABG TCO2 29 mEq/L (20-26); Blood Gas Modality ASSIST CONTROL; Blood Gas VT 550 cc
[2020-07-28] MEDS: *HR* OxyCODONE/APAP 5/325 TABLET PO PRN (00:18)
[2020-07-28] MEDS: CeFAZolin 2 GM/120 ML BAG IVPB SCH ×2 (00:25→05:30)
[2020-07-28] MEDS: *HR* FentaNYL (PF) 100 MCG/2 ML VIAL IVP PRN ×4 (01:16→07:55)
[2020-07-28 01:57] LABS: ABG Base Excess 2 mEq/L (-2 to 3); ABG HCO3 27 mEq/L (21-27); ABG Oxygen Saturation 95 % (95-98); ABG PCO2 48 mmHg (35-45); ABG PH 7.36 pH Units (7.32-7.45); ABG PO2 77 mmHg (85-104); ABG TCO2 29 mEq/L (20-26)
[2020-07-28] MEDS: niCARdipine 20 MG/200 ML MLS IVC SCH ×7 (02:17→23:07)
[2020-07-28 04:24] LABS: Basophils % 0.1 %; Hematocrit 30.1 % (37.5-50.1); Hemoglobin 9.8 g/dL (12.9-16.9); Immature Granulocytes % 0.4 % (0-4); Lymphocytes # 0.5 K/mcL (0.6-4.6); Lymphocytes % 4.4 %; Mean Corpuscular HGB Conc 32.6 g/dL (31.6-35.5); Mean Corpuscular Hemoglobin 29.7 pg (28.0-33.3); Mean Corpuscular Volume 91.2 fL (83.0-100.0); Mean Platelet Volume 10.1 fL (9.4-12.4); Monocytes # 1.1 K/mcL (0.0-1.3); Monocytes % 8.8 %; Neutrophils # 10.3 K/mcL (1.6-8.9); Platelet Count 158 K/mcL (140-400); Red Cell Distribution Width 13.8 % (11.5-14.5); Segmented Neutrophils % 86.3 %; White Blood Count 11.9 K/mcL (4.3-11.1)
[2020-07-28] MEDS: *HR* OxyCODONE/APAP 7.5/325 TABLET PO PRN (04:32)
[2020-07-28 04:41] LABS: BUN/Creatinine Ratio 21 (6-26); Blood Urea Nitrogen 16 mg/dL (8-23); Calcium 8.7 mg/dL (8.6-10.3); Carbon Dioxide 24 mEq/L (23-29); Chloride 107 mEq/L (98-107); Glucose 129 mg/dL (70-105); Osmolality,Calculated 293 (280-300); Potassium 4.3 mEq/L (3.5-5.1); Sodium 140 mEq/L (136-145); eGFR For African Americans > 60 (> 60); eGFR For Non-African Americans > 60 (> 60)
[2020-07-28] MEDS: 0.9 % Sodium Chloride 1,000 ML IVC SCH ×2 (05:30→19:11)
[2020-07-28] MEDS: Nitroglycerin 0.4 MG PATCH.TD24 TD SCH (05:35)
[2020-07-28] MEDS: Insulin LISPRO 300 UNITS/3 ML VIAL SQ SCH ×3 (05:35→17:56)
[2020-07-28] MEDS: *HR* OxyCODONE/APAP 10/325 TABLET PO PRN ×3 (07:56→19:50)
[2020-07-28] MEDS: Chlorhexidine Rinse 15 ML MOUTHWASH MM SCH ×2 (08:37→19:11)
[2020-07-28] MEDS: Aspirin 81 MG TAB.CHEW PO SCH (08:38)
[2020-07-28] MEDS ORDERED: Pantoprazole 40 MG VIAL IVP SCH (09:00)
[2020-07-28] MEDS: Ketorolac 15 MG/ML VIAL IVP SCH ×3 (13:19→23:07)
[2020-07-28] MEDS: Insulin Human Regular 100 UNIT in 0.9 % Sodium Chloride 100 ML IVC SCH (17:55)
[2020-07-28] MEDS: Norepinephrine 4 MG/254 ML IV.SOLN IVC SCH (19:10)
[2020-07-29] MEDS: *HR* OxyCODONE/APAP 10/325 TABLET PO PRN ×5 (01:39→22:04)
[2020-07-29] MEDS: Ketorolac 15 MG/ML VIAL IVP SCH ×4 (05:34→23:32)
[2020-07-29] MEDS: niCARdipine 20 MG/200 ML MLS IVC SCH (05:35)
[2020-07-29 05:52] LABS: Basophils % 0.2 %; Eosinophils # 0.1 K/mcL (0.0-0.6); Hematocrit 29.4 % (37.5-50.1); Hemoglobin 9.5 g/dL (12.9-16.9); Immature Granulocytes % 0.6 % (0-4); Lymphocytes # 1.2 K/mcL (0.6-4.6); Lymphocytes % 9.5 %; Mean Corpuscular HGB Conc 32.3 g/dL (31.6-35.5); Mean Corpuscular Hemoglobin 29.6 pg (28.0-33.3); Mean Corpuscular Volume 91.6 fL (83.0-100.0); Mean Platelet Volume 9.7 fL (9.4-12.4); Monocytes % 8.3 %; Neutrophils # 10.1 K/mcL (1.6-8.9); Platelet Count 181 K/mcL (140-400); Red Blood Count 3.21 M/mcL (4.19-5.50); Red Cell Distribution Width 14.3 % (11.5-14.5); Segmented Neutrophils % 80.4 %; White Blood Count 12.5 K/mcL (4.3-11.1)
[2020-07-29 06:29] LABS: BUN/Creatinine Ratio 29 (6-26); Blood Urea Nitrogen 27 mg/dL (8-23); Calcium 8.5 mg/dL (8.6-10.3); Carbon Dioxide 25 mEq/L (23-29); Chloride 102 mEq/L (98-107); Glucose 193 mg/dL (70-105); Osmolality,Calculated 290 (280-300); Sodium 135 mEq/L (136-145); eGFR For African Americans > 60 (> 60); eGFR For Non-African Americans > 60 (> 60)
[2020-07-29] MEDS ORDERED: *HR* HYDROmorphone (PF) 1 MG/ML SYRINGE IVP PRN ×2 (07:17→08:15)
[2020-07-29] MEDS: Insulin LISPRO 300 UNITS/3 ML VIAL SQ SCH ×5 (08:08→20:47)
[2020-07-29] MEDS: Chlorhexidine Rinse 15 ML MOUTHWASH MM SCH ×3 (08:10→20:44)
[2020-07-29] MEDS: Aspirin 81 MG TAB.CHEW PO SCH ×2 (08:10→09:45)
[2020-07-29] MEDS ORDERED: Nitroglycerin 0.4 MG TAB.SUBL SL PRN (08:15)
[2020-07-29] MEDS ORDERED: D5% in Water 1,000 ML IVC PRN (08:15)
[2020-07-29] MEDS ORDERED: *HR* Dextrose 50 % in Water (Vial) 50 ML VIAL IVP PRN (08:15)
[2020-07-29] MEDS ORDERED: Ondansetron 4 MG/2 ML VIAL IVP PRN (08:15)
[2020-07-29] MEDS ORDERED: *HR* Promethazine 25 MG/ML VIAL IM PRN (08:15)
[2020-07-29] MEDS ORDERED: Dextrose Gel 15 GM/37.5 ML TUBE PO PRN ×2 (08:15)
[2020-07-29] MEDS ORDERED: Naloxone 0.4 MG/ML INJ IVP PRN (08:15)
[2020-07-29] MEDS: Acetaminophen 325 MG TABLET PO PRN (08:56)
[2020-07-29] MEDS: *HR* Heparin 5,000 UNIT/ML VIAL SQ SCH (17:31)
[2020-07-29] MEDS: Insulin DETEMIR 100 UNIT/ML X5UNITS SQ SCH (20:46)
[2020-07-30] MEDS: *HR* OxyCODONE/APAP 10/325 TABLET PO PRN ×4 (02:34→21:04)
[2020-07-30] MEDS: Ketorolac 15 MG/ML VIAL IVP SCH ×3 (05:21→19:04)
[2020-07-30] MEDS: *HR* Heparin 5,000 UNIT/ML VIAL SQ SCH ×2 (05:21→19:04)
[2020-07-30 05:52] LABS: Basophils % 0.4 %; Eosinophils # 0.3 K/mcL (0.0-0.6); Eosinophils % 3.2 %; Hemoglobin 8.8 g/dL (12.9-16.9); Immature Granulocytes % 0.5 % (0-4); Lymphocytes # 1.5 K/mcL (0.6-4.6); Lymphocytes % 18.4 %; Mean Corpuscular HGB Conc 31.4 g/dL (31.6-35.5); Mean Corpuscular Hemoglobin 28.9 pg (28.0-33.3); Mean Corpuscular Volume 92.1 fL (83.0-100.0); Mean Platelet Volume 10.2 fL (9.4-12.4); Monocytes # 0.8 K/mcL (0.0-1.3); Monocytes % 9.4 %; Neutrophils # 5.6 K/mcL (1.6-8.9); Nucleated Red Blood Cells 0.2 /100 WBC (0); Platelet Count 178 K/mcL (140-400); Red Blood Count 3.04 M/mcL (4.19-5.50); Segmented Neutrophils % 68.1 %; White Blood Count 8.2 K/mcL (4.3-11.1)
[2020-07-30 06:17] LABS: BUN/Creatinine Ratio 40 (6-26); Blood Urea Nitrogen 31 mg/dL (8-23); Calcium 8.5 mg/dL (8.6-10.3); Carbon Dioxide 27 mEq/L (23-29); Chloride 101 mEq/L (98-107); Glucose 160 mg/dL (70-105); Osmolality,Calculated 288 (280-300); Potassium 3.9 mEq/L (3.5-5.1); Sodium 134 mEq/L (136-145); eGFR For African Americans > 60 (> 60); eGFR For Non-African Americans > 60 (> 60)
[2020-07-30] MEDS: Aspirin 81 MG TAB.CHEW PO SCH (08:41)
[2020-07-30] MEDS: Chlorhexidine Rinse 15 ML MOUTHWASH MM SCH ×2 (08:41→21:05)
[2020-07-30] MEDS: Insulin LISPRO 300 UNITS/3 ML VIAL SQ SCH ×5 (08:46→21:06)
[2020-07-30] MEDS: Insulin DETEMIR 100 UNIT/ML X5UNITS SQ SCH (21:05)
[2020-07-31] MEDS: Ketorolac 15 MG/ML VIAL IVP SCH ×2 (00:09→04:57)
[2020-07-31] MEDS: *HR* OxyCODONE/APAP 10/325 TABLET PO PRN ×5 (01:55→21:12)
[2020-07-31] MEDS: *HR* Heparin 5,000 UNIT/ML VIAL SQ SCH ×2 (04:57→17:21)
[2020-07-31 06:26] LABS: Basophils % 0.5 %; Eosinophils # 0.3 K/mcL (0.0-0.6); Eosinophils % 4.3 %; Hematocrit 27.8 % (37.5-50.1); Immature Granulocytes % 0.3 % (0-4); Lymphocytes # 1.4 K/mcL (0.6-4.6); Lymphocytes % 21.5 %; Mean Corpuscular HGB Conc 32.4 g/dL (31.6-35.5); Mean Corpuscular Hemoglobin 29.6 pg (28.0-33.3); Mean Corpuscular Volume 91.4 fL (83.0-100.0); Mean Platelet Volume 10.3 fL (9.4-12.4); Monocytes # 0.7 K/mcL (0.0-1.3); Monocytes % 10.4 %; Platelet Count 188 K/mcL (140-400); Red Blood Count 3.04 M/mcL (4.19-5.50); Red Cell Distribution Width 13.8 % (11.5-14.5); White Blood Count 6.3 K/mcL (4.3-11.1)
[2020-07-31 06:47] LABS: BUN/Creatinine Ratio 35 (6-26); Blood Urea Nitrogen 28 mg/dL (8-23); Calcium 8.8 mg/dL (8.6-10.3); Carbon Dioxide 27 mEq/L (23-29); Chloride 103 mEq/L (98-107); Glucose 147 mg/dL (70-105); Osmolality,Calculated 290 (280-300); Sodium 136 mEq/L (136-145); eGFR For African Americans > 60 (> 60); eGFR For Non-African Americans > 60 (> 60)
[2020-07-31] MEDS: Chlorhexidine Rinse 15 ML MOUTHWASH MM SCH ×2 (07:56→19:51)
[2020-07-31] MEDS: Aspirin 81 MG TAB.CHEW PO SCH (07:57)
[2020-07-31] MEDS: Insulin LISPRO 300 UNITS/3 ML VIAL SQ SCH ×4 (07:57→19:52)
[2020-07-31] MEDS: Acetaminophen 325 MG TABLET PO PRN (13:15)
[2020-07-31] MEDS: Insulin DETEMIR 100 UNIT/ML X5UNITS SQ SCH (19:54)
[2020-08-01] MEDS: *HR* OxyCODONE/APAP 10/325 TABLET PO PRN ×3 (01:25→12:14)
[2020-08-01] MEDS: *HR* Heparin 5,000 UNIT/ML VIAL SQ SCH (05:16)
[2020-08-01 07:34] VITALS: BP 115/63
[2020-08-01] MEDS: Acetaminophen 325 MG TABLET PO PRN (08:06)
[2020-08-01] MEDS: Chlorhexidine Rinse 15 ML MOUTHWASH MM SCH (08:07)
[2020-08-01] MEDS: Aspirin 81 MG TAB.CHEW PO SCH (08:07)
[2020-08-01] MEDS: Insulin LISPRO 300 UNITS/3 ML VIAL SQ SCH ×2 (08:08→12:07)
== END 2020-08-01 13:02 | disposition home or self-care (01) | DRG 234 ==
LOC: EMEROOARM 09:55 → 2ANU 09:55 → ICNU 07-26 14:35 → SUATTDRO 07-26 16:05 → 2NNU 07-30 16:12
PROVIDERS: ADMIT Internal Medicine; ATTEND General Practice